=== PATIENT | male | born 1980 | race Caucasian/White ===

== ENCOUNTER 2020-09-04 12:38 | Emergency (ER) | payer OTHER, SELFPAY ==
[2020-09-04 12:49] VITALS: BP 130/84; PULSE 104; RESP 16; TEMP 36.8; O2SAT 99
--- NOTE | 2020-09-04 12:53 | ED.LOWEXIN ---
HPI - Extremity Injury (Lower) General Chief Complaint: Extremity Injury, Lower Stated Complaint: Knee pain Time Seen by Provider: 09/04/20 12:54 Source: patient Mode of arrival: ambulatory Limitations: no limitations History of Present Illness HPI Narrative: Daniel Abel is a 40 yo male who has no PMH who was unloading a [place] of bananas and stepped wrong - pain in medial side R knee. No prior injury Related Data Allergies Allergy/AdvReac Type Severity Reaction Status Date / Time No Known Allergies Allergy Verified 09/04/20 12:54 Review of Systems Review of Systems: Narrative: CONSTITUTIONAL: Denies fever, chills, sweats. EYES: Denies visual changes, redness, discharge. ENT: Denies rhinorrhea, congestion, sore throat, otalgia. CARDIOVASCULAR: Denies chest pain, palpitations, edema. RESPIRATORY: Denies dyspnea, wheezing, cough GASTROINTESTINAL: Denies abdominal pain, nausea, vomiting, diarrhea. GENITOURINARY: Denies dysuria, hematuria, abnormal discharge SKIN: Denies rash or itching. NEUROLOGIC: Denies numbness, or focal weakness. PSYCHIATRIC: Denies anxiety or depression. R medial knee pain PMFSH Past Medical History Medical History (Updated 09/04/20 @ 13:11 by Beena Aj CNP) No acute medical problems Family History Family History Mother Heart disease Father Cancer Social History Social History (Updated 09/04/20 @ 13:07 by Beena Aj CNP) Smoking packs per day: 0.4 Smoking cigarettes per day: 8.0 Smoking status: Current every day smoker Tobacco type: cigarettes Alcohol intake: former Gender identity (if verbalized by the patient): Male Comments At time of signature, I agree with nursing past medical, surgical, social and family history. There is no relevant family history pertinent to the presenting complaint. Exam Narrative: Exam Narrative: GENERAL: This is a well-nourished, well-developed patient, in mild distress. HEAD: normocephalic, atraumatic. EYES: Sclera clear/white. Vision is grossly intact. EARS: External ears normal. Hearing grossly intact. NOSE: External nose normal without nasal discharge, nares without redness, no rhinorrhea. THROAT: Mucous membranes moist, NECK: Neck supple, CARDIOVASCULAR: Regular rate and rhythm without murmurs, gallops, or rubs. RESPIRATORY: Clear to auscultation. Breath sounds equal bilaterally. No wheezes, rales, or rhonchi. GASTROINTESTINAL: Abdomen soft, SKIN: warm, intact with no suspicious lesions or rash, good texture and turgor. NEURO: awake, alert, and oriented to person, place and time. There were no obvious focal neurologic abnormalities. Steady gait EXTREMITIES: Normal range of motion om L R knee anterior movements, no apparent knee derangement, no point tenderness, pain when adducts leg. BACK: Nontender without deformity Course Course Emergency Course: Patient came to express care look at right medial knee had pain after unloading bananas 2 days ago and today stocking were shelf Discussed possible reasons for knee pain including meniscus tear unlikely ligament tear as patient has stable alignment noted no instability noted on movement of knee Jl wrap and high-dose ibuprofen given should follow-up with orthopedist if pain does not improve Vital Signs Vital signs: Vital Signs Temperature 98.3 F 09/04/20 12:49 Pulse Rate 104 H 09/04/20 12:49 Respiratory Rate 16 09/04/20 12:49 Blood Pressure 130/84 09/04/20 12:49 Pulse Oximetry 99 09/04/20 12:49 Temperature 98.3 F 09/04/20 12:49 Pulse Rate 104 H 09/04/20 12:49 Respiratory Rate 16 09/04/20 12:49 Blood Pressure 130/84 09/04/20 12:49 Pulse Oximetry 99 09/04/20 12:49 MDM - Extremity Injury (Lower) Differential Diagnosis Differential diagnosis: Likely acute internal derangement of knee and other (Right knee pain) Discharge Plan Discharge Clinical Impression: Acute pain
== END 2020-09-04 13:15 | disposition home or self-care (01) ==
PROVIDERS: Emergency Provider Nurse Practitioner
DX: M25.561 Pain in right knee (principal); F17.210 Nicotine dependence, cigarettes, uncomplicated
CPT/HCPCS: 99213; G0463

== ENCOUNTER 2022-02-07 08:51 | Emergency (ER) | payer OTHER, SELFPAY ==
[2022-02-07 09:00] VITALS: BP 120/74; PULSE 79; RESP 16; TEMP 36.4; O2SAT 99
--- NOTE | 2022-02-07 09:38 | ED.SKABFB ---
HPI - Skin/Abscess/Foreign Bdy General Chief complaint: Skin/Abscess/Foreign Body Stated complaint: head injury Time Seen by Provider: 02/07/22 09:05 Source: patient Mode of arrival: ambulatory Limitations: no limitations History of Present Illness HPI narrative: Mr. Abel is a 41-year-old male patient presenting to the clinic today with complaints of possible foreign body to the back of his scalp. 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 Reports that his has been picking the thorn out piece by piece however he does not feel like it is completely removed. Complains of some mild pain and redness around the area. No fever or chills. Denies any headaches. Related Data Home Medications Medication Instructions Recorded Confirmed No Home Medications 02/07/22 02/07/22 Allergies Allergy/AdvReac Type Severity Reaction Status Date / Time No Known Allergies Allergy Verified 02/07/22 09:01 Review of Systems Review of Systems: Pertinent positives per HPI. Patient denies any fever, chills, rash, headache, visual changes, dizziness, cough, runny nose, sore throat, shortness of breath, chest pain, palpitations, nausea, vomiting, diarrhea, constipation, abdominal pain, or any urinary issues. PMFSH Past Medical History Medical History No acute medical problems Family History Family History Mother Heart disease Father Cancer Social History Social History Smoking packs per day: 0.4 Smoking cigarettes per day: 8.0 Smoking status: Current every day smoker Tobacco type: cigarettes Alcohol intake: former Gender identity (if verbalized by the patient): Male Comments At the time of my signature, I reviewed and agree with the nursing past medical, surgical, social, and family history. There is no relevant family history pertinent to the patient complaint. Exam Narrative: General: Well-developed, well nourished, in no apparent distress Head: Normocephalic, atraumatic. Cardio: Regular rate and rhythm, s1 and s2 normal, no murmur appreciated. Resp: Clear to auscultation bilaterally, no rhonchi, rales, wheezing or rubs. Integumentary: [place], warm, and dry, intact without lesion, no rashes. Dark brown small retained foreign body to the left posterior scalp. Course Course Emergency Course: Portions of this record may have been created with voice recognition software. Level of Care: Express Care Visit Vital Signs Vital signs: Vital Signs Temperature 36.4 C 02/07/22 09:00 Pulse Rate 79 02/07/22 09:00 Respiratory Rate 16 02/07/22 09:00 Blood Pressure 120/74 02/07/22 09:00 Pulse Oximetry 99 02/07/22 09:00 Temperature 36.4 C 02/07/22 09:00 Pulse Rate 79 02/07/22 09:00 Respiratory Rate 16 02/07/22 09:00 Blood Pressure 120/74 02/07/22 09:00 Pulse Oximetry 99 02/07/22 09:00 Vital signs reviewed Procedures Foreign Body Removal Foreign Body #1: Foreign Body Removal Date: 02/07/22 Time Out Performed: no Site: left and other (Posterior head) Description of foreign body: other (Stick) Technique: other Confirmed by:: direct visualization Complications: none Post-procedure exam: awake, alert Neurovascular: no change from pre-procedure Foreign Body Removal Narrative: Verbal consent was obtained for foreign body removal. Removal was performed by cleaning the wound with technic care and instilling 1 mL of lidocaine without epi into the wound edges. Anesthesia was appropriate. The bevel of an 18-gauge needle was then used to get underneath the splinter and pop the splinter out of the skin bed. Patient tolerated procedure well. ROSALIND and Band-Aid applied.
[2022-02-07] MEDS: LIDOCAINE HCL 1% LOCAL INJ 20 ML VIAL INFILTRATE (09:56)
== END 2022-02-07 09:46 | disposition home or self-care (01) ==
PROVIDERS: Emergency Provider Nurse Practitioner Family
DX: S01.04XA Puncture wound with foreign body of scalp, initial encounter (principal); W45.8XXA Other foreign body or object entering through skin, initial encounter; F17.210 Nicotine dependence, cigarettes, uncomplicated
CPT/HCPCS: 99212; G0463

== ENCOUNTER 2024-05-17 18:13 | Emergency (ER) | payer OTHER, SELFPAY ==
[2024-05-17 18:21] VITALS: BP 130/84; PULSE 92; RESP 15; TEMP 36.6; O2SAT 100
--- NOTE | 2024-05-17 19:01 | ED.MALEGU ---
HPI - Male Genitourinary General Chief complaint: Urogenital-Male Stated complaint: urinating blood Time Seen by Provider: 05/17/24 18:30 Source: patient Mode of arrival: ambulatory Limitations: no limitations History of Present Illness HPI Narrative: This is a 44 year old male that presents to the ER for blood from the urethra. Reports he was urinating outside and a delivery truck came to their house. He had to pinch his penis to stop urinating quickly. Reports since he has had blood from the urethra at the end of urinating. Denies fever, dysuria, vomiting, abdominal pain, flank pain. Related Data Allergies Allergy/AdvReac Type Severity Reaction Status Date / Time No Known Allergies Allergy Verified 02/07/22 09:01 Review of Systems Review of Systems: CONSTITUTIONAL: Denies fever GASTROINTESTINAL: Denies abdominal pain, nausea, vomiting GENITOURINARY: Denies dysuria or hematuria. All systems reviewed & are unremarkable except as noted in HPI and below PMFSH Past Medical History Medical History No acute medical problems Family History Family History Mother Heart disease Father Cancer Social History Social History Smoking packs per day: 0.4 Smoking cigarettes per day: 8.0 Smoking status: Current every day smoker Tobacco type: cigarettes Alcohol intake: former Gender identity (if verbalized by the patient): Male Exam Narrative: GENERAL: Well-appearing, well-nourished, and in no acute distress. HEAD: Normocephalic, atraumatic. EYES: EOMI. CHEST: Clear to auscultation. No respiratory distress. No wheezes rales or rhonchi HEART: Regular rate and rhythm. No murmur heard. Normal peripheral pulses. ABDOMEN: Soft, nontender, nondistended, normal active bowel sounds. EXTREMITIES: Normal range of motion. No edema. SKIN: Warm, dry, no rash. NEURO: No focal deficits. Alert and oriented x3. PSYCH: Normal mood and affect MALE GENITAL: Very mild oozing of blood from the urethra Course Course Emergency Course: Patient updated on his workup and agrees with plan of care Consultations Consultation #1: Spoke with Dr. Chun about patient and workup. Agrees with antibiotic, will prescribed Azo if needed Date: 05/17/24 Vital Signs Vital signs: Vital Signs Temperature 97.8 F 05/17/24 18:21 Pulse Rate 92 05/17/24 18:21 Respiratory Rate 15 05/17/24 18:21 Blood Pressure 130/84 05/17/24 18:21 Pulse Oximetry 100 05/17/24 18:21 Oxygen Delivery Room Air 05/17/24 18:21 Temperature 97.8 F 05/17/24 18:21 Pulse Rate 97 05/17/24 20:14 Respiratory Rate 16 05/17/24 20:14 Blood Pressure 124/84 05/17/24 20:14 Pulse Oximetry 100 05/17/24 20:14 Oxygen Delivery Room Air 05/17/24 18:21 MDM - Male Genitourinary MDM Narrative Medical decision making narrative: Patient presents to the ER after pinching his penis and having blood from the urethra. He has very mild oozing of blood from the urethra. He is afebrile. Denies abdominal pain, difficulty urinating, flank pain. UA with greater than 100 red blood cells, 1+ leuk esterase and 11-20 white blood cells. Spoke with Dr. Chun about patient and workup. Agrees with antibiotic, will prescribed Azo if needed. Patient updated on his workup and agrees with plan of care. Will be given follow-up with urology if needed. He was also endorsing that he has had some intermittent anal itching ongoing over the last several years. Would like a referral to GI specialist Differential Diagnosis Differential diagnosis: Likely urinary tract infection, urethritis and other (urethral injury) Lab Data Attestation: I reviewed the patient's lab results. Labs: Lab Results 05/17/24 Range/Units 19:22 Urine Color Yellow (Yellow) Urine Appearance Trev
[2024-05-17 19:36] LABS: Appearance Urine Clear (Clear); Bacteria Urine None Seen /hpf; Bilirubin Urine Negative (Negative); Blood Urine 3+ (Negative); Color Urine Yellow (Yellow); Glucose Urine UA Negative (Negative); Ketones Urine Negative (Negative); Leukocyte Esterase Ur 1+ LEU/UL (Negative); Nitrate Urine Negative (Negative); Non Pathogenic Casts 0-2; Protein Urine Negative (Negative); RBC Urine >100 /hpf (0-2); Squamous Epithelial Cell Urine None Seen /hpf (Few); Urobilinogen Urine 0.2 mg/dL (<2.0); pH Urine 5.5 (5.0-9.0)
[2024-05-17 19:38] LABS: Add Urine Microscopic? YES
[2024-05-17 20:14] VITALS: BP 124/84; PULSE 97; RESP 16; O2SAT 100
== END 2024-05-17 20:53 | disposition home or self-care (01) ==
PROVIDERS: Emergency Medicine; Emergency Provider Physician Assistant
DX: N39.0 Urinary tract infection, site not specified (principal); S37.30XA Unspecified injury of urethra, initial encounter; F17.210 Nicotine dependence, cigarettes, uncomplicated; X58.XXXA Exposure to other specified factors, initial encounter
CPT/HCPCS: 81001; 87086; 99283